=== PATIENT | female | born 1975 | race Caucasian/White ===

== ENCOUNTER 2016-07-14 18:41 | Emergency (ER) | payer OTHER ==
[~2016-07-14] VITALS: Ht 162.6 cm; Wt 102.0 kg
[2016-07-14 18:48] VITALS: TEMP 36.8; Ht 162.6 cm; Wt 102.0 kg
[2016-07-14] MEDS ORDERED: MoRPHine SULFATE 10 MG/ML CARP/VIAL IM STA (19:52)
[2016-07-14] MEDS ORDERED: KETOROLAC TROMETHAMINE 60 MG/2 ML VIAL IM STA (19:52)
[2016-07-14] MEDS ORDERED: FLX10 PO (20:02)
[2016-07-14] MEDS ORDERED: PARO10TA PO (20:02)
[2016-07-14] MEDS ORDERED: PRVC/40 PO (20:02)
[2016-07-14] MEDS ORDERED: PARO40TA3 PO (20:02)
[2016-07-14] MEDS ORDERED: OXYC-57 PO (20:02)
[2016-07-14] MEDS ORDERED: MIRA1TAB3 PO (20:02)
--- NOTE | 2016-07-14 20:34 | DIAGNOSTIC IMAGING REPORT ---
CERVICAL SPINE 4 VIEWS HISTORY: Pain back pain COMPARISON: None. FINDINGS: The cervical spine is visualized from C1 through the superior endplate of T1. There is no fracture. No subluxation. Disc spaces are preserved. Prevertebral soft tissues and the atlantodens interval are intact. IMPRESSION: No fracture or subluxation within the cervical spine. Electronically signed by: Mitch Le M.D. 07/14/2016 8:33 PM Dictated Date/Time: 07/14/2016 8:32 PM
--- NOTE | 2016-07-14 20:35 | DIAGNOSTIC IMAGING REPORT ---
THORACIC SPINE 3 VIEWS HISTORY: Pain back pain COMPARISON: None. FINDINGS: There is no fracture. No subluxation. Mild scoliosis. IMPRESSION: Mild scoliosis. Otherwise negative study Electronically signed by: Mitch Le M.D. 07/14/2016 8:34 PM Dictated Date/Time: 07/14/2016 8:34 PM
--- NOTE | 2016-07-14 20:35 | DIAGNOSTIC IMAGING REPORT ---
LUMBAR SPINE 5 VIEWS HISTORY: Pain. Neuropathy. back pain COMPARISON: None. FINDINGS: There is no fracture. No subluxation. Disc spaces are preserved. IMPRESSION: No fracture or subluxation within the lumbar spine. Electronically signed by: Mitch Le M.D. 07/14/2016 8:33 PM Dictated Date/Time: 07/14/2016 8:33 PM
--- NOTE | 2016-07-14 22:12 | DIAGNOSTIC IMAGING REPORT ---
THORACIC SPINE MRI HISTORY: Back pain mid back pain TECHNIQUE: Multiplanar multisequence MRI of the thoracic spine was performed without the use of contrast. COMPARISON: None. FINDINGS: Alignment and curvature are intact. No fracture or subluxation. No significant central canal or neural foraminal narrowing. IMPRESSION: No evidence of disc herniation or spinal stenosis. Negative study of the thoracic spine. 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 This is not considered to be of significance clinically Electronically signed by: Mitch Le M.D. 07/14/2016 10:10 PM Dictated Date/Time: 07/14/2016 10:09 PM
--- NOTE | 2016-07-14 22:33 | DIAGNOSTIC IMAGING REPORT ---
LUMBAR SPINE MRI HISTORY: Back pain. Radiculopathy. low back pain, right leg numbness TECHNIQUE: Multiplanar multisequence MRI of the lumbar spine was performed without the use of contrast. COMPARISON: None. FINDINGS: For the purpose of the report the L5-S1 disc space will be located on axial image of 30. Normal signal characteristics of the vertebral bodies as well as intervertebral disc. L1-L2: No significant central canal or neural foraminal narrowing. L2-L3: No significant central canal or neural foraminal narrowing. L3-L4: No significant central canal or neural foraminal narrowing. L4-L5: No significant central canal or neural foraminal narrowing. L5-S1: No significant central canal or neural foraminal narrowing. IMPRESSION: Normal study Electronically signed by: Mitch Le M.D. 07/14/2016 10:32 PM Dictated Date/Time: 07/14/2016 10:31 PM
[2016-07-14] MEDS ORDERED: NAPR-1169 PO (23:04)
--- NOTE | 2016-07-14 23:05 | EMERGENCY ROOM VISIT NOTE ---
History First contact with patient: 19:32 Chief Complaint: BACK PAIN Stated Complaint: R SIDE NUMB,BACK MECK SHOULDER PAIN History of Present Illness The patient is a 40 year old female who presents to the Emergency Room with complaints of right-sided back pain. The patient reports that she has had right -sided back pain since last week. She believes that she twisted her back at work. She reports that the pain has been gradually worsening. She was seen at [facility] and states that "they didn't do anything." She reports that they gave her prescriptions for Flexeril and Percocet and she has been taking them without relief. She reports that she does not like to take the Percocet very frequently. She states that her right leg has been going on intermittently. She states that she has also had tingling in both of her legs. Is mainly located in the right lower back but does radiate upward. She states that she has chronic incontinence but this has not changed. She denies any other urinary symptoms, abdominal pain, weakness, fevers or chills. She does report she had one episode of vomiting today which she feels is secondary to pain. She rates her discomfort a 10/10. Review of Systems A complete 10-point Review of Systems was discussed with the patient, with pertinent positives and negatives listed in the History of Present Illness. All remaining Review of Systems questions can be considered negative unless otherwise specified. Social History Smoking Status: Current Every Day Smoker Current/Historical Medications Scheduled Mirabegron (Myrbetriq Er), 50 MG PO QAM Naproxen (Naprosyn), 500 MG PO BID Paroxetine Hcl (Paxil), 10 MG PO QAM Paroxetine Hcl (Paxil), 40 MG PO QAM Pravastatin Sod (Pravastatin Sodium), 40 MG PO QPM Scheduled PRN Cyclobenzaprine HCl (Cyclobenzaprine HCl), 10 MG PO TID PRN for Muscle Spasms Oxycodone/Acetaminophen 5MG/325MG (Percocet 5MG/325MG), 1 TABLET PO Q6H PRN for Pain Allergies Coded Allergies: Promethazine (Unverified Allergy, Unknown, MUSCLE SPASM, 07/14/16) Physical Exam Vital Signs Date Time Temp Pulse Resp B/P Pulse Ox O2 Delivery O2 Flow Rate FiO2 07/14/16 23:13 101 18 138/91 97 Room Air 07/14/16 21:19 102 18 142/91 95 Room Air 07/14/16 18:48 36.8 115 20 146/105 98 Room Air Physical Exam VITALS: Vitals are noted on the nurse's note and reviewed by myself. No abnormalities noted. GENERAL: This is a 40-year-old female, tearful, nondiaphoretic, well-developed well-nourished. SKIN: The skin was without rashes. HEAD: Normocephalic atraumatic. EYES: Pupils equal round and reactive to light and accommodation. Extraocular movements intact. NECK: Supple, tenderness over bilateral paraspinous muscles. HEART: Regular rate and rhythm without murmurs gallops or rubs. LUNGS: Clear to auscultation bilaterally without wheezes, rales or rhonchi. ABDOMEN: Positive bowel sounds x 4. Soft, nontender to palpation. MUSCULOSKELETAL: No muscle atrophy, erythema, or edema noted of the back. There is tenderness to light palpation over both the lumbar and thoracic paraspinous muscles and spinous processes. NEURO: Patient was alert and oriented to person place and time. Normal sensation to light and sharp touch. Deep tendon reflexes 2+ in the lower extremities. Dorsalis pedis pulse 2+ bilaterally. Medical Decision & Procedures ER Provider Diagnostic Interpretation: CERVICAL SPINE 4 VIEWS IMPRESSION: No fracture or subluxation within the cervical spine. THORACIC SPINE 3 VIEWS IMPRESSION: Mild scoliosis. Otherwise negative study LUMBAR SPINE 5 VIEWS IMPRESSION: No fracture or subluxation within the lumbar spine. THORACIC SPINE MRI IMPRESSION: No evidence of disc herniation or spinal stenosis. Negative study of the thoracic spine. 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 This is not considered to be of significance clinically LUMBAR SPINE MRI IMPRESSION: Normal study Medications Administered Medications (Trade) Dose Ordered Sig/Leticia Route Start Time Stop Time Status Last Admin Dose Admin Morphine Sulfate (MoRPHine SULFATE INJ) 8 mg NOW STAT IM 07/14/16 19:52 07/14/16 19:54 DC 07/14/16 20:01 8 MG Ketorolac Tromethamine (Toradol Inj) 60 mg NOW STAT IM 07/14/16 19:52 07/14/16 19:54 DC 07/14/16 20:01 60 MG Medical Decision Differential diagnosis includes epidural abscess, cauda equina syndrome, cord compression, musculoskeletal pain, muscle spasm, among others. The patient was evaluated as above. The patient was given 8 mg morphine IM and 60 mg Toradol IM with some relief of her pain. She declined any further analgesics. X-rays of the cervical, thoracic and lumbar spine were initially performed and were negative. At that time, MRI of the lumbar and thoracic spine were ordered due to continued pain. These were also interpreted by radiology with no acute findings. The patient was encouraged to follow-up with her primary care provider for further evaluation of this back pain. She has prescriptions for Flexeril and Percocet. I did give her a prescription for Naprosyn. She will return here for any worsening symptoms or new/concerning symptoms. Based on the patient's presentation, lab results, and imaging studies, I feel the patient is stable for outpatient treatment. Discharge instructions were reviewed with the patient. The patient verbalized understanding of my assessment and treatment plan and was discharged home in good condition. [facility] Search Results: patient reviewed within database Impression Primary Impression: Back pain Departure Information Dispostion Home / Self-Care Condition GOOD Prescriptions Naproxen (Naprosyn) 500 Mg Tab 500 MG PO BID for 7 Days, #14 TAB Prov: Ciera Marcos .QUITA 07/14/16 Referrals Jordy Oro M.D. (PCP) Patient Instructions My [facility] Additional Instructions Continue medications as prescribed. Naprosyn as prescribed. Follow-up with the primary care provider this week for further evaluation. Return for worsening symptoms, incontinence, fevers, new onset numbness or weakness, or any new/concerning symptoms. Problem Qualifiers Primary Impression: Back pain Back pain location: low back pain Chronicity: acute Back pain laterality: right Sciatica presence: without sciatica Qualified Codes: M54.5 - Low back pain
[2016-07-14 23:13] VITALS: BP 138/91; PULSE 101; O2SAT 97
== END 2016-07-14 23:14 | disposition home or self-care (01) ==
LOC: C.EDB 18:43 → C.EDD 23:14
DX: M54.9 Dorsalgia, unspecified (principal); R20.2 Paresthesia of skin; F17.200 Nicotine dependence, unspecified, uncomplicated; Z79.899 Other long term (current) drug therapy; Z88.8 Allergy status to other drugs, medicaments and biological substances

== ENCOUNTER → 2017-12-03 | Outpatient (CLI) | payer OTHER ==
[~2017-12-03] MED LIST: FLX10 PO; MIRA1TAB3 PO; OXYC-57 PO; PARO10TA PO; PARO40TA3 PO; PRVC/40 PO
[2017-12-03 09:43] LABS: BASO % 0.4 %; BASO ABS # 0.06 K/uL (0-0.2); EOS % 1.8 %; EOS ABS # 0.25 K/uL (0-0.5); HEMATOCRIT 43.4 % (37-47); HEMOGLOBIN 14.7 g/dL (12.0-16.0); IG# 0.04 K/uL (0.00-0.02); LYMPH % 32.5 %; LYMPH ABS # 4.54 K/uL (1.2-3.4); MEAN CELL VOLUME 93.7 fL (80-100); MEAN CORPUSCULAR HEMOGLOBIN 31.7 pg (25-34); MEAN CORPUSCULAR HGB CONC 33.9 g/dl (32-36); MEAN PLATELET VOLUME 10.8 fL (7.4-10.4); MONO % 5.7 %; NEUT % 59.3 %; NEUT ABS # 8.29 K/uL (1.4-6.5); PLATELET COUNT 280 K/uL (130-400); RED CELL DISTRIBUTION WIDTH SD 44.7 fL (36.4-46.3); WHITE BLOOD COUNT 13.98 K/uL (4.8-10.8)
[2017-12-03 10:01] LABS: HEMOGLOBIN A1C 5.5 % (4.5-5.6)
[2017-12-03 10:07] LABS: ALBUMIN 3.8 gm/dl (3.4-5.0); ALKALINE PHOSPHATASE 92 U/L (45-117); ALT/SGPT 49 U/L (12-78); AST/SGOT 21 U/L (15-37); BLOOD UREA NITROGEN 13 mg/dl (7-18); CALCIUM 9.4 mg/dl (8.5-10.1); CARBON DIOXIDE 27 mmol/L (21-32); CHOLESTEROL 119 mg/dl (0-200); CREATININE 0.84 mg/dl (0.60-1.20); GLUCOSE 97 mg/dl (70-99); LDL CHOLESTEROL CALCULATED 46 mg/dl; POTASSIUM 4.2 mmol/L (3.5-5.1); SODIUM 135 mmol/L (136-145); TOTAL PROTEIN 8.3 gm/dl (6.4-8.2)
== END | disposition home or self-care (01) ==
LOC: C.LAB1850 07:40
PROVIDERS: ATTEND Physician Assistant
DX: Z79.899 Other long term (current) drug therapy (principal)